=== PATIENT | female | born 1965 | race Hispanic/Latino ===

== ENCOUNTER 2017-10-10 10:36 | Emergency (ER) | payer BC ==
[~2017-10-10] VITALS: Ht 152.4 cm; Wt 82.1 kg
--- OUTSIDE RECORDS SUMMARY | 2017-10-10 10:40 | XMS REPORT | Summary of Care ---
Author Author Alyson Thompson M.A. Organization Unknown Address Unknown Phone Unavailable Care Team Providers [facility] Name Role Phone Alyson Thompson M.A. Unavailable Unavailable JUNITO HAMMER MD Unavailable Unavailable Unavailable Unavailable Functional Status Name Dates Details Functional status health issues are not documented Status: Name Dates Details Cognitive status health issues are not documented Status: Problems Name Dates Details Malabsorption (579.9, K90.9) Status: Active Weight loss (783.21, R63.4) Status: Active Morbid obesity (278.01, E66.01) Status: Active S/P gastric bypass (V45.86, Z98.84) Status: Active Medications Name Dates Details Premarin 0.9 MG Oral Tablet Active Calcium + D TABS * Refills: 0 Active Multivitamins CAPS * Refills: 0 Active Vitamin B-12 TABS * Refills: 0 Active Vitamin D TABS * Refills: 0 Active Iron TABS * Refills: 0 Active Probiotic Oral Capsule * Refills: 0 Active Allergies and Adverse Reactions Name Dates Details Sulfa Drugs (Allergy) Status: Active Past Medical History Name Dates Details History of backache (V13.59, Z87.39) Status: Resolved History of diabetes mellitus (V12.29, Z86.39) Status: Resolved History of esophageal reflux (V12.79, Z87.19) Status: Resolved History of sleep apnea (V13.89, Z86.69) Status: Resolved Personal history of asthma (V12.69, Z87.09) Status: Resolved Procedures Procedure Dates Details History of Hysterectomy Completed 15-Feb-2011 History of Section Completed 17-Oct-1997 History of Hernia Repair Completed 27-May-2000 History of Cholecystectomy Completed 27-Jul-1996 History of Gastric Surgery For Morbid Obesity Gastric Stapling Completed Jul-1996 History of Pilonidal Cyst Resection Completed 27-May-1982 History of Gastric Surgery For Morbid Obesity Vertical-Banded Gastroplasty Completed 04-Apr-2013 History of Diagnostic Esophagogastroduodenoscopy Completed 07-Jun-2012 History of Ventral Hernia Repair Completed 04-Apr-2013 Immunization Name Dates Details Immunizations not documented Family History Name Dates Details Family history of hypertension (V17.49, Z82.49) Status: Active Family history of diabetes mellitus (V18.0, Z83.3) Status: Active Name Dates Details Family history of Overweight (278.02, E66.3) Status: Active Name Dates Details Family history of Morbid obesity (278.01, E66.01) Status: Active Social History Name Dates Details - Status: Name Dates Details Never smoker Vital Signs Date Test Result Details [id number] BP Systolic 121 mm[Hg] Status: Comments: Location: LUE; Position: Sitting BP Diastolic 77 mm[Hg] Status: Comments: Location: LUE; Position: Sitting Weight 190.3125 lb Status: Body Mass Index Calculated 37.17 kg/m2 Status: Body Surface Area Calculated 1.83 m2 Status: Heart Rate 89 /min Status: [id number]-Kcf-[id number]:04 BP Systolic 128 mm[Hg] Status: Comments: Location: LUE; Position: Sitting BP Diastolic 77 mm[Hg] Status: Comments: Location: LUE; Position: Sitting Weight 191 lb Status: Body Mass Index Calculated 37.3 kg/m2 Status: Body Surface Area Calculated 1.83 m2 Status: Heart Rate 88 /min Status: Temperature 98.2 f Status: Comments: Method: Oral [id number] BP Systolic 141 mm[Hg] Status: Comments: Location: LUE; Position: Sitting BP Diastolic 90 mm[Hg] Status: Comments: Location: LUE; Position: Sitting Weight 194.3125 lb Status: Body Mass Index Calculated 37.95 kg/m2 Status: Body Surface Area Calculated 1.84 m2 Status: Heart Rate 90 /min Status: Temperature 98 f Status: Results Date Description Value Details Results not documented Plan of Care Name Dates Details Planned Observations Planned Goals not documented Instructions Name Dates Details Instructions not documented Encounters Appointment; MICHELLE REGAN M.D. Encounter Diagnosis: Problem not documented On: 02-Aug-2016 13:45 Appointment; MICHELLE REGAN M.D. Encounter Diagnosis: Problem not documented On: 08-Nov-2016 10:00 Appointment; [address] Encounter Diagnosis: Problem not documented On: 10-Nov-2016 10:30 Appointment; MICHELLE REGAN M.D. Encounter Diagnosis: Problem not documented On: 17-Jan-2017 15:15 Appointment; MICHELLE REGAN M.D. Encounter Diagnosis: Problem not documented On: 21-Feb-2017 15:00 Appointment; LILLIAN UNGER M.D. Encounter Diagnosis: Problem not documented On: 26-Mar-2017 14:30 Appointment; MICHELLE REGAN M.D. Encounter Diagnosis: Problem not documented On: 23-May-2017 11:00 Appointment; LILLIAN UNGER M.D. Encounter Diagnosis: Problem not documented On: 03-Sep-2017 10:15 Appointment; LILLIAN UNGER M.D. Encounter Diagnosis: Problem not documented On: 24-Sep-2017 11:45
[2017-10-10] MEDS ORDERED: SODIUM CHLORIDE 0.9% 1000ML 1,000 ML IV SCH (12:15)
[2017-10-10] MEDS ORDERED: POTASSIUM CHLORIDE 10 MEQ TABCR PO ONE (13:15)
[2017-10-10] MEDS ORDERED: KETOROLAC TROMETHAMINE 30 MG/ML VIAL IV STA (17:47)
[2017-10-10] MEDS ORDERED: ONDANSETRON HCL INJ 2 MG/ML VIAL IV STA (17:50)
[2017-10-10 19:20] VITALS: BP 135/71
== END 2017-10-10 19:25 | disposition short-term general hospital (02) ==
LOC: FSED 10:36
DX: R68.83 Chills (without fever) (principal); R10.32 Left lower quadrant pain; E87.6 Hypokalemia; L02.211 Cutaneous abscess of abdominal wall; Z86.14 Personal history of Methicillin resistant Staphylococcus aureus infection
CPT/HCPCS: 71046; 71250; 74177; 80053; 82553; 84484; 85025; 87400; 93005; 99284; J1885; J2405

== ENCOUNTER 2022-01-24 04:15 | Emergency (ER) | payer BC ==
[~2022-01-24] VITALS: Ht 152.4 cm; Wt 82.1 kg
[2022-01-24] MEDS ORDERED: SODIUM CHLORIDE 0.9% 1000ML 1,000 ML IV STA (05:18)
[2022-01-24] MEDS ORDERED: ONDANSETRON HCL INJ 2MG/ML 2ML 2 MG/ML VIAL IV PRN (05:30)
[2022-01-24 05:59] LABS: BASOPHILS % 0.3 % (0.0-1.0); EOSINOPHILS % 0.4 % (0.0-6.0); HEMATOCRIT 41.7 % (34.2-44.1); HEMOGLOBIN 13.2 g/dL (12.0-16.0); LYMPHOCYTES # (AUTO) 1.1 (1.0-3.2); LYMPHOCYTES % 10.4 % (18.0-39.1); MEAN CORPUSCULAR HGB CONC 31.7 g/dL (31-35); MEAN CORPUSCULAR VOLUME 85.5 fL (81-99); MONOCYTES # (AUTO) 0.3 (0.2-0.8); MONOCYTES % 2.9 % (4.4-11.3); NEUTROPHILS # (AUTO) 8.6 (2.1-6.9); NEUTROPHILS % 85.6 % (38.7-80.0); PLATELET COUNT 359 x10e3/uL (140-360); RED BLOOD COUNT 4.88 x10e6/uL (3.6-5.1); RED CELL DISTRIBUTION WIDTH 14.4 % (11.7-14.4)
[2022-01-24] MEDS ORDERED: FENTANYL CITRATE/PF 100MCG/2 ML INJ IV PRN (06:00)
[2022-01-24 06:08] LABS: CLARITY,URINE SL CLOUDY (CLEAR); COLOR,URINE YELLOW (YELLOW); KETONES,URINE 2+ (NEGATIVE); LEUKOCYTE ESTERASE ,URINE NEGATIVE (NEGATIVE); NITRITE,URINE NEGATIVE (NEGATIVE); PROTEIN,URINE DIPSTICK NEGATIVE (NEGATIVE); URINE UROBILINOGEN 0.2 mg/dL (0.2 - 1)
[2022-01-24 06:21] LABS: ALBUMIN 2.9 g/dL (3.5-5.0); ALBUMIN/GLOBULIN RATIO 0.8 (0.8-2.0); ANION GAP 12.9 mmol/L (8-16); CALCIUM 7.9 mg/dL (8.4-10.2); CREATININE, SERUM 0.57 mg/dL (0.57-1.11); POTASSIUM 3.9 mmol/L (3.5-5.1)
[2022-01-24 06:23] LABS: BACTERIA,URINE FEW /HPF; EPITHELIAL CELLS,URINE MODERATE /LPF; RBC,URINE 0-5 /HPF (0-5); WBC,URINE (MAN) 0-5 /HPF (0-5)
[2022-01-24] MEDS ORDERED: IOPAMIDOL 370 MG/ML 100 ML INFUS..BTL INJ ONE (06:55)
[2022-01-24] MEDS ORDERED: METRONIDAZOLE500 MG PO (08:21)
[2022-01-24] MEDS ORDERED: LEVOFLOXACIN750 MG PO (08:21)
[2022-01-24] MEDS ORDERED: ONDANSETRON ODT4 MG PO (08:25)
[2022-01-24 08:30] VITALS: BP 132/78
== END 2022-01-24 08:32 | disposition home or self-care (01) ==
LOC: ER 05:19
DX: R10.11 Right upper quadrant pain (principal); K52.9 Noninfective gastroenteritis and colitis, unspecified; R11.2 Nausea with vomiting, unspecified; M54.50 Low back pain, unspecified; I10 Essential (primary) hypertension; Z85.528 Personal history of other malignant neoplasm of kidney
CPT/HCPCS: 36415; 74177; 80053; 81001; 83690; 85025; 93005; 99284; J2405; J3010; J7030; Q9967

== ENCOUNTER 2022-06-02 11:12 | Emergency (ER) | payer BC ==
[~2022-06-02] VITALS: Ht 152.4 cm; Wt 82.1 kg
[~2022-06-02 11:12] MED LIST: LEVOFLOXACIN750 MG PO; METRONIDAZOLE500 MG PO; ONDANSETRON ODT4 MG PO
[2022-06-02] MEDS ORDERED: ONDANSETRON HCL INJ 2MG/ML 2ML 2 MG/ML VIAL IV STA (11:37)
[2022-06-02] MEDS ORDERED: DONNATAL/LIDOCAINE/MAALOX 30 ML SUSP PO ONE (11:45)
[2022-06-02] MEDS ORDERED: SODIUM CHLORIDE 0.9% 1000ML 1,000 ML IV ONE (12:00)
[2022-06-02 12:12] LABS: BASOPHILS % 0.4 % (0.0-1.0); EOSINOPHILS # (AUTO) 0.1 (0.0-0.4); EOSINOPHILS % 1.3 % (0.0-6.0); HEMATOCRIT 38.9 % (34.2-44.1); HEMOGLOBIN 12.4 g/dL (12.0-16.0); LYMPHOCYTES # (AUTO) 1.8 (1.0-3.2); LYMPHOCYTES % 21.8 % (18.0-39.1); MEAN CORPUSCULAR HEMOGLOBIN 27.8 pg (28-32); MEAN CORPUSCULAR HGB CONC 31.9 g/dL (31-35); MEAN CORPUSCULAR VOLUME 87.2 fL (81-99); MONOCYTES # (AUTO) 0.5 (0.2-0.8); MONOCYTES % 6.1 % (4.4-11.3); NEUTROPHILS # (AUTO) 5.9 (2.1-6.9); PLATELET COUNT 354 x10e3/uL (140-360); RED BLOOD COUNT 4.46 x10e6/uL (3.6-5.1); RED CELL DISTRIBUTION WIDTH 13.9 % (11.7-14.4)
[2022-06-02 12:20] LABS: CLARITY,URINE SL CLOUDY (CLEAR); COLOR,URINE YELLOW (YELLOW)
[2022-06-02 12:22] LABS: KETONES,URINE NEGATIVE (NEGATIVE); LEUKOCYTE ESTERASE ,URINE NEGATIVE (NEGATIVE); NITRITE,URINE NEGATIVE (NEGATIVE); PROTEIN,URINE DIPSTICK NEGATIVE (NEGATIVE); URINE UROBILINOGEN 0.2 mg/dL (0.2 - 1)
[2022-06-02 12:39] LABS: BACTERIA,URINE MODERATE /HPF; EPITHELIAL CELLS,URINE MODERATE /LPF; RBC,URINE 0-5 /HPF (0-5)
[2022-06-02 12:42] LABS: ALBUMIN 3.2 g/dL (3.5-5.0); ANION GAP 14.9 mmol/L (8-16); CALCIUM 8.8 mg/dL (8.4-10.2); CREATININE, SERUM 0.59 mg/dL (0.57-1.11); POTASSIUM 3.9 mmol/L (3.5-5.1)
[2022-06-02] MEDS ORDERED: LIDOCAINE VISC 2% SOLN 15 ML UDC ONE (13:04)
[2022-06-02] MEDS ORDERED: MAGNESIUM/ALUMINUM/SIMETHICONE 30 ML UDC ONE (13:05)
[2022-06-02] MEDS ORDERED: BELLADONNA ALK/PHENOBARBITAL 5 ML UDC ONE (13:05)
[2022-06-02] MEDS ORDERED: PROTONIX20 MG PO (13:21)
[2022-06-02] MEDS ORDERED: ONDANSETRON ODT4 MG PO (13:21)
[2022-06-02] MEDS ORDERED: DICYCLOMINE HCL20 MG PO (13:21)
== END 2022-06-02 13:38 | disposition home or self-care (01) ==
LOC: ER 11:17
DX: K29.70 Gastritis, unspecified, without bleeding (principal); R10.13 Epigastric pain; I10 Essential (primary) hypertension; E11.9 Type 2 diabetes mellitus without complications; Z98.84 Bariatric surgery status; Z87.11 Personal history of peptic ulcer disease; K21.9 Gastro-esophageal reflux disease without esophagitis; Z85.528 Personal history of other malignant neoplasm of kidney; Z88.5 Allergy status to narcotic agent; Z88.2 Allergy status to sulfonamides
CPT/HCPCS: 36415; 80053; 81001; 83690; 84484; 85025; 93005; 99283; J2405; J7030

== ENCOUNTER 2025-03-26 03:06 | Inpatient (IN) | payer BC ==
[~2025-03-26] VITALS: Ht 152.4 cm; Wt 82.1 kg
[2025-03-26] VITALS (8 sets, daily range): BP systolic 117–132; BP diastolic 61–79; PULSE 63–94; RESP 12–20; TEMP 97.6–98.2; O2SAT 96–100
[~2025-03-26 03:06] MED LIST changes: +DICYCLOMINE HCL20 MG PO; +PROTONIX20 MG PO
[2025-03-26] MEDS: SODIUM CHLORIDE 0.9% 1000ML 1,000 ML IV STA (03:29)
[2025-03-26] MEDS: Morphine 4mg INJECTION 4 MG/ML INJ IV STA (03:29)
[2025-03-26] MEDS: ONDANSETRON HCL INJ 2MG/ML 2ML 2 MG/ML VIAL IV STA (03:30)
[2025-03-26 03:33] LABS: BASOPHILS % 0.5 % (0.0-1.0); EOSINOPHILS % 1.5 % (0.0-6.0); LYMPHOCYTES % 31.3 % (18.0-39.1); MONOCYTES % 8.3 % (4.4-11.3); NEUTROPHILS % 58.1 % (38.7-80.0); RED CELL DISTRIBUTION WIDTH 14.3 % (11.7-14.4)
[2025-03-26 04:07] LABS: EST GLOMERULAR FILTRATION RATE 101.0 ML/MIN (>=60)
[2025-03-26] MEDS ORDERED: IOPAMIDOL 370 MG/ML 100 ML INFUS..BTL INJ ONE (05:12)
[2025-03-26] MEDS ORDERED: ONDANSETRON HCL INJ 2MG/ML 2ML 2 MG/ML VIAL IV PRN (05:30)
[2025-03-26] MEDS: BENZOCAINE 20% SPR 60 ML CAN MT STA (06:08)
[2025-03-26] MEDS: SODIUM CHLORIDE 0.9% 1000ML 1,000 ML IV SCH (06:34)
[2025-03-26 06:44] LABS: LEUKOCYTE ESTERASE ,URINE NEGATIVE (NEGATIVE); PROTEIN,URINE DIPSTICK NEGATIVE (NEGATIVE); URINE UROBILINOGEN 0.2 mg/dL (0.2 - 1)
[2025-03-26 07:06] LABS: EPITHELIAL CELLS,URINE RARE /LPF
[2025-03-26] MEDS: Morphine 4mg INJECTION 4 MG/ML INJ IV PRN (09:51)
[2025-03-26] MEDS ORDERED: AZELASTINE HCL (13:30)
[2025-03-26] MEDS ORDERED: FLUOXETINE HCL20 MG PO (13:30)
[2025-03-26] MEDS ORDERED: MONTELUKAST SOD10 MG PO (13:30)
[2025-03-26] MEDS ORDERED: ALBUTEROL1.25 MG/3 INH (13:30)
[2025-03-26] MEDS ORDERED: ALLEGRA ALLERGY60 MG PO (13:30)
[2025-03-26] MEDS ORDERED: PEPCID40 MG PO (13:30)
[2025-03-26] MEDS ORDERED: VESICARE5 MG PO (13:30)
[2025-03-26] MEDS ORDERED: LISINOPRIL40 MG PO (13:30)
[2025-03-26] MEDS ORDERED: MELOXICAM7.5 MG PO (13:30)
[2025-03-26] MEDS ORDERED: PROTONIX20 MG PO (13:30)
[2025-03-26] MEDS ORDERED: MOUNJARO15 MG/0.5 SC (13:30)
[2025-03-26] MEDS ORDERED: FLONASE ALLERG9.9 ML (13:30)
[2025-03-26] MEDS ORDERED: PREMARIN0.625 MG PO (13:30)
[2025-03-26] MEDS ORDERED: MIRABEGRON ER50 MG PO (13:30)
[2025-03-26] MEDS ORDERED: DIPHENHYDRAMINE HCL 25 MG CAP PO PRN (14:45)
[2025-03-26] MEDS ORDERED: DEXTROSE 50% SYRINGE 50 ML IV PRN (14:45)
[2025-03-26] MEDS ORDERED: LIDOCAINE 4% PATCH TP PRN (14:45)
[2025-03-26] MEDS ORDERED: BENZONATATE 100 MG CAP PO PRN (14:45)
[2025-03-26] MEDS ORDERED: HYDRALAZINE HCL 20 MG/ML VIAL IV PRN (14:45)
[2025-03-26] MEDS ORDERED: DOCUSATE SODIUM 100 MG CAP PO PRN (14:45)
[2025-03-26] MEDS ORDERED: ALBUTEROL/IPRATROPIUM 3 ML NEB NEB PRN (14:45)
[2025-03-26] MEDS ORDERED: SIMETHICONE 80 MG CHEW PO PRN (14:45)
[2025-03-26] MEDS: DEXTROSE 5%/0.9% SOD CHL 1,000 ML IV SCH (15:42)
[2025-03-26] MEDS: ENOXAPARIN SOD INJ 40 MG/0.4 ML SYR SC SCH (16:31)
[2025-03-26] MEDS ORDERED: MELATONIN 5 MG TABLET PO PRN (21:00)
[2025-03-27] VITALS (11 sets, daily range): BP systolic 116–152; BP diastolic 61–82; PULSE 65–91; RESP 14–21; TEMP 97.3–98.5; O2SAT 96–100
[2025-03-27] MEDS: ACETAMINOPHEN 325 MG TAB PO PRN (02:59)
[2025-03-27 05:47] LABS: BASOPHILS % 0.6 % (0.0-1.0); EOSINOPHILS % 3.8 % (0.0-6.0); LYMPHOCYTES % 31.7 % (18.0-39.1); MONOCYTES % 11.7 % (4.4-11.3); NEUTROPHILS % 51.8 % (38.7-80.0); RED CELL DISTRIBUTION WIDTH 14.6 % (11.7-14.4)
[2025-03-27 06:20] LABS: EST GLOMERULAR FILTRATION RATE 103.0 ML/MIN (>=60)
[2025-03-27] MEDS: PANTOPRAZOLE SOD 40 MG TABEC PO SCH (07:30)
[2025-03-27] MEDS: ACETAMINOPHEN 1000 MG/100 ML IV PRN (20:00)
[2025-03-28] VITALS (11 sets, daily range): BP systolic 111–157; BP diastolic 52–84; PULSE 69–88; RESP 17–20; TEMP 97.4–98.7; O2SAT 97–100
[2025-03-28] MEDS: BISACODYL 10 MG SUPP PR ONE (08:36)
[2025-03-29] VITALS (9 sets, daily range): BP systolic 119–142; BP diastolic 66–84; PULSE 72–95; RESP 18–20; TEMP 97.6–98.9; O2SAT 95–100
[2025-03-29] MEDS: FLUOXETINE HCL 20 MG CAP PO SCH (09:15)
[2025-03-29 15:13] LABS: EST GLOMERULAR FILTRATION RATE 105 ML/MIN (>=60)
[2025-03-29] MEDS: POTASSIUM CHLORIDE 20 MEQ TAB CR PO PRN (15:56)
== END 2025-03-29 17:10 | disposition home or self-care (01) | DRG 390 ==
LOC: ER 03:15 → ERHOLD 05:30 → MED/SURG2 08:27
PROVIDERS: ADMIT Internal Medicine; ATTEND Internal Medicine
PROC: 0D9670Z Drainage of Stomach with Drainage Device, Via Natural or Artificial Opening (ICD-10-PCS; principal; 2025-03-27)
DX: K56.690 Other partial intestinal obstruction (principal); I10 Essential (primary) hypertension; E11.9 Type 2 diabetes mellitus without complications; E86.0 Dehydration; E66.01 Morbid (severe) obesity due to excess calories; E78.00 Pure hypercholesterolemia, unspecified; M19.90 Unspecified osteoarthritis, unspecified site; Z85.528 Personal history of other malignant neoplasm of kidney; Z90.5 Acquired absence of kidney; Z88.2 Allergy status to sulfonamides; Z79.85 Long-term (current) use of injectable non-insulin antidiabetic drugs; Z68.35 Body mass index [BMI] 35.0-35.9, adult; Z88.5 Allergy status to narcotic agent; Z72.0 Tobacco use
CPT/HCPCS: 36415; 74018; 74022; 74177; 80048; 80053; 81001; 82550; 82948; 83690; 84484; 85014; 85018; 85025; 93005; 93306; 94799; 99284; J1650; J2270; J2405; J2470; J2543; J7030; J7042; Q9967

== ENCOUNTER 2025-04-03 10:15 | Emergency (ER) | payer BC ==
[~2025-04-03] VITALS: Ht 152.4 cm; Wt 82.1 kg
[~2025-04-03 10:15] MED LIST changes: +ALBUTEROL1.25 MG/3 INH; +ALLEGRA ALLERGY60 MG PO; +AZELASTINE HCL; +FLONASE ALLERG9.9 ML; +FLUOXETINE HCL20 MG PO; +LISINOPRIL40 MG PO; +MELOXICAM7.5 MG PO; +MIRABEGRON ER50 MG PO; +MONTELUKAST SOD10 MG PO; +MOUNJARO15 MG/0.5 SC; +PEPCID40 MG PO; +PREMARIN0.625 MG PO; +VESICARE5 MG PO
[2025-04-03] MEDS: Morphine 4mg INJECTION 4 MG/ML INJ IV STA (11:29)
[2025-04-03] MEDS: SODIUM CHLORIDE 0.9% 1000ML 1,000 ML IV STA (11:29)
[2025-04-03] MEDS: ONDANSETRON HCL INJ 2MG/ML 2ML 2 MG/ML VIAL IV STA (11:30)
[2025-04-03 11:31] LABS: BASOPHILS % 0.7 % (0.0-1.0); EOSINOPHILS % 0.7 % (0.0-6.0); LYMPHOCYTES % 22.2 % (18.0-39.1); MONOCYTES % 6.7 % (4.4-11.3); NEUTROPHILS % 69.2 % (38.7-80.0); RED CELL DISTRIBUTION WIDTH 14.2 % (11.7-14.4)
[2025-04-03 11:42] LABS: LEUKOCYTE ESTERASE ,URINE TRACE (NEGATIVE); PROTEIN,URINE DIPSTICK 1+ (NEGATIVE); URINE UROBILINOGEN 0.2 mg/dL (0.2 - 1)
[2025-04-03 11:58] LABS: EST GLOMERULAR FILTRATION RATE 104.0 ML/MIN (>=60)
[2025-04-03 12:21] LABS: EPITHELIAL CELLS,URINE FEW /LPF; WBC,URINE (MAN) 21-50 /HPF (0-5)
[2025-04-03] MEDS ORDERED: IOPAMIDOL 370 MG/ML 100 ML INFUS..BTL INJ ONE (13:12)
[2025-04-03] MEDS ORDERED: AUGMENTIN 500-1 EACH PO (14:59)
[2025-04-03 15:07] VITALS: PULSE 99; RESP 16; TEMP 98.3; O2SAT 100
== END 2025-04-03 15:10 | disposition home or self-care (01) ==
LOC: ER 10:22
DX: R11.2 Nausea with vomiting, unspecified (principal); K29.70 Gastritis, unspecified, without bleeding; R10.9 Unspecified abdominal pain; K76.0 Fatty (change of) liver, not elsewhere classified; R94.31 Abnormal electrocardiogram [ECG] [EKG]; Z98.84 Bariatric surgery status
CPT/HCPCS: 36415; 74177; 80053; 81001; 82550; 83690; 84484; 85025; 93005; 99284; J2270; J2405; J2543; J7030; Q9967